=== PATIENT | female | born 1960 ===

== ENCOUNTER → 2020-12-31 | Outpatient (REF) ==
--- NOTE | 2021-01-01 07:36 | REPPI ---
INDICATION: DDD DISABILITY DIAGNOSIS DETERMINATION COMPARISON: None. TECHNIQUE: AP, lateral, bilateral oblique views of the right elbow. FINDINGS: Mild age-related changes including periarticular sclerosis and subtle cortical irregularity at the radial head. No acute fracture or dislocation. Lateral view without effusion or elevation to the fat pad. IMPRESSION: Mild age-related degenerative changes suggested. <Electronically signed by Reggie Laughlin > 01/01/21 0759
--- NOTE | 2021-01-01 07:46 | REPPI ---
INDICATION: DDD DISABILITY DIAGNOSIS DETERMINATION COMPARISON: None. TECHNIQUE: AP and lateral right forearm. FINDINGS: No acute fracture or dislocation. Age-related changes at the elbow and wrist joints. Surrounding soft tissues are unremarkable. IMPRESSION: Essentially age-appropriate examination.. No acute fracture or dislocation. <Electronically signed by Reggie Laughlin > 01/01/21 0707
--- NOTE | 2021-01-01 07:46 | REPPI ---
INDICATION: DDD DISABILITY DIAGNOSIS DETERMINATION COMPARISON: None. TECHNIQUE: Internal rotation, external rotation, and Y view. FINDINGS: Subtle cortical irregularity at the acromioclavicular joint noted. Glenohumeral joint is intact and age-appropriate. Subacromial space is normal. No periarticular calcifications or loose bodies are identified. No acute fracture or dislocation. IMPRESSION: Mild age-related changes at the acromioclavicular joint. <Electronically signed by Reggie Laughlin > 01/01/21 0701
== END ==
LOC: M PLAIMG 12:07
PROVIDERS: ATTEND Internal Medicine
DX: M25.521 Pain in right elbow (principal); M25.511 Pain in right shoulder